=== PATIENT | male | born 1970 | race Caucasian/White ===

== ENCOUNTER 2023-08-04 15:41 | Inpatient (IN) | payer OTHER ==
[2023-08-04 16:43] VITALS: BMI 25.1
[2023-08-04] MEDS ORDERED: MAG HYDROX/AL HYDROX/SIMETH 30 ML UNIT-DOSE CUP PO PRN (17:05)
[2023-08-04] MEDS ORDERED: IBUPROFEN 600 MG TABLET (FP) PO PRN (17:05)
[2023-08-04] MEDS ORDERED: POLYETHYLENE GLYCOL (HEALTHYLAX) 3350 17 GM PACKET PO PRN (17:05)
[2023-08-04] MEDS ORDERED: IBUPROFEN 400 MG TABLET (FP) PO PRN (17:05)
[2023-08-04] MEDS ORDERED: DICYCLOMINE HCL 10 MG CAPSULE PO PRN (17:05)
[2023-08-04] MEDS ORDERED: BISMUTH SUBSALICYLATE 524 MG/30 ML PO PRN (17:05)
[2023-08-04] MEDS ORDERED: BENZONATATE 200 MG CAPSULE PO PRN (17:05)
[2023-08-04] MEDS ORDERED: P-EPHED 60MG/TRIPROLIDI 2.5MG TABLET PO PRN (17:05)
[2023-08-04] MEDS ORDERED: hydrOXYzine PAMOATE 25 MG CAPSULE (FP) PO PRN (17:05)
[2023-08-04] MEDS ORDERED: guaiFENesin 600 MG TABLET.ER (FP) PO PRN (17:05)
[2023-08-04] MEDS ORDERED: LOPERAMIDE HCL 2 MG CAPSULE PO PRN (17:05)
[2023-08-04] MEDS ORDERED: METHOCARBAMOL 500 MG TABLET PO PRN (17:05)
[2023-08-04] MEDS ORDERED: NICOTINE POLACRILEX 2 MG LOZENGE BC PRN (17:05)
[2023-08-04] MEDS ORDERED: BENZOCAINE/MENTHOL (CHLORASEPTIC ) LOZENGE MM PRN (17:05)
[2023-08-04] MEDS ORDERED: NICOTINE POLACRILEX 2 MG GUM BUC PRN (17:05)
[2023-08-04] MEDS ORDERED: ONDANSETRON *ODT* 4 MG TABLET SL PRN (17:05)
[2023-08-04] MEDS ORDERED: ACETAMINOPHEN 325 MG TABLET (FP) PO PRN (17:05)
[2023-08-04] MEDS ORDERED: MAGNESIUM HYDROX 2400MG/30ML ORAL SUSPENSION 30 ML CUP PO PRN (17:05)
[2023-08-04] MEDS ORDERED: chlordiazePOXIDE HCL 25 MG CAPSULE PO PRN (17:07)
[2023-08-04] MEDS: chlordiazePOXIDE HCL 25 MG CAPSULE PO SCH (22:59)
[2023-08-04] MEDS: THIAMINE 100 MG TABLET PO SCH (23:00)
[2023-08-04] MEDS: MELATONIN 5 MG TABLETS PO SCH (23:08)
[2023-08-05] MEDS: PRENATAL VITAMINS W/ FOLIC ACID TABLET (FP) PO SCH (10:50)
[2023-08-05 11:43] LABS: POTASSIUM 4.3 mmol/L (3.5-5.1)
[2023-08-05 11:46] LABS: CALCIUM 8.6 mg/dL (8.5-10.1)
[2023-08-05 11:47] LABS: ALBUMIN 3.1 g/dl (3.4-5.0); BLOOD UREA NITROGEN 9.4 mg/dL (7-18)
[2023-08-05 11:50] LABS: CREATININE 0.8 mg/dL (0.55-1.3)
[2023-08-05 11:52] LABS: BILIRUBIN,TOTAL 0.7 mg/dL (0.2-1); HEMATOCRIT 40.8 % (35.4-49); MCH 32.9 pg (25.7-33.7); MCHC 34.4 g/dl (32.0-35.9); MEAN CELL VOLUME 95.7 fl (80-96); MEAN PLT VOLUME 8.7 fl (7.5-11.1); PLATELET COUNT 254 10^3/uL (134-434); RBC 4.27 M/mm3 (4.00-5.60); WHITE BLOOD COUNT 7.6 K/mm3 (4.0-10.0)
[2023-08-05 12:51] LABS: HIV INTERPRETATION NEGATIVE (NEGATIVE)
[2023-08-05 17:39] VITALS: TEMP 97.8
[2023-08-05 20:08] VITALS: BP 147/77; PULSE 90; RESP 17
[2023-08-06] MEDS ORDERED: chlordiazePOXIDE HCL 25 MG CAPSULE PO SCH (05:00)
[2023-08-07] MEDS ORDERED: chlordiazePOXIDE HCL 10 MG CAPSULE PO PRN
[2023-08-07] MEDS ORDERED: chlordiazePOXIDE HCL 10 MG CAPSULE PO SCH (05:00)
[2023-08-08] MEDS ORDERED: chlordiazePOXIDE HCL 10 MG CAPSULE PO SCH (05:00)
[2023-08-09] MEDS ORDERED: chlordiazePOXIDE HCL 10 MG CAPSULE PO ONE (05:00)
== END 2023-08-05 20:12 | disposition left against medical advice (07) | DRG 770 ==
LOC: YASAS 15:41 → Y6N 17:44
PROVIDERS: ADMIT Allergy & Immunology; ATTEND Surgery
PROC: HZ2ZZZZ Detoxification Services for Substance Abuse Treatment (ICD-10-PCS; principal; 2023-08-04)
DX: F10.20 Alcohol dependence, uncomplicated (principal); F17.210 Nicotine dependence, cigarettes, uncomplicated
CPT/HCPCS: 36415; 80053; 85027; 86780; 87389; 93005; 93010